=== PATIENT | female | born 1970 | race Caucasian/White ===

== ENCOUNTER 2024-03-31 22:05 | Emergency (ER) | payer OTHER, SELFPAY ==
[2024-03-31 22:07] VITALS: BP 137/89
--- NOTE | 2024-04-01 00:10 | ED.GENMED ---
History of Present Illness
General
Chief Complaint: Head Injury
Source: patient
Exam Limitations: none
Time Seen by Provider: 03/31/24 23:42
Travel History
Have you had any contact with someone who has COVID-19?: No
Do you have any symptoms of coronavirus? Fever > 100 degrees, chills, cough, shortness of breath, sore throat, loss of taste or smell, muscle aches, or headache?: No
History of Present Illness
History of Present Illness:
53-year-old female presents complaining of nasal pain after tripping and falling forward hitting her nose on a wheelchair ramp. No loss of conscious. She was starting to swallow blood and vomited shortly afterwards. She notes a slight headache.
She denies vision change or neck pain. She notes swelling and pain to the nose. No other complaints at this time.
Past History
Past History
ED Past Medical History: None; Negative HTN, Hypercholesterolemia or IDDM
ED Past Surgical History:
Social History
Tobacco: Non-smoker
Alcohol: None
Drug: None
Personal:
Living: with family
Employment: Employed
Family History
Family History: Hypertension
Phy Exam
Physical Exam
Physical Exam:
General: Well-appearing female no acute respiratory distress
HEENT: Normocephalic pupils equal round reactive to light and the nose is swollen with an abrasion over the bridge of the nose. No septal hematoma. Facial bones otherwise nontender extraocular motions are intact
Neurologic: Alert and oriented no facial asymmetry good strength to the lower and upper extremities
Musculoskeletal exam: The spine is nontender
Course
Orders/Labs/Results
Orders:
Orders
03/31/24 22:11
CR Facial Bones Comp Min 3 Vw* Urgent
Comment:
Reason For Exam: injury
Vital Signs
Initial and Last Documented VS:
Initial Vital Signs
Temp Pulse Resp BP Pulse Ox
98.3 F 80 20 137/89 99
03/31/24 22:07 03/31/24 22:07 03/31/24 22:07 03/31/24 22:07 03/31/24 22:07
Last Documented Vital Signs
Temp Pulse Resp BP Pulse Ox
98.3 F 80 20 137/89 99
03/31/24 22:07 03/31/24 22:07 03/31/24 22:07 03/31/24 22:07 03/31/24 22:07
MDM/Problems Addressed
Differential Diagnosis Includes:
Fall with nasal pain. Consider nasal contusion versus fracture or other facial bone fracture.
X-rays of the facial bones were ordered through triage which are negative for acute finding. I personally visualized the x-rays. Clinically I am suspicious for nasal fracture however this is not showing up on the x-rays. Nonetheless we will treat
as such. Recommended ice ibuprofen and ENT follow-up
*Critical Care Note
Total Time (30-74mins, 75-104mins- exclusive of procedures): Not Applicable
ED Attending Note
-
Portions of this chart may have been created with voice recognition software.� Occasional wrong word or��sound alike� substitutions may have occurred due to the inherent limitations of voice recognition software.
Discharge Plan
Departure
Patient Disposition: Home (Routine Discharge)
Date of Disposition: 04/01/24
Time of Disposition: 00:13
Patient with high blood pressure during this ER visit?: No
Discharge Problem:
Injury of nose
Instructions: Nose fracture
Prescriptions:
No Action
No Meds [No Current Medications]
0
Referrals:
Nallely Otto PA-C [Family Provider] -
Willy Liang MD [Active] -
Activity Restrictions/Additional Instructions:
Ice for swelling. Use ibuprofen or Tylenol for pain. Return here for worsening symptoms otherwise follow-up with ENT for further evaluation
Interventions
Interventions:
*Risk Screen - Suicide Last Done: 03/31/24 22:07
*General Assessment Last Done: 03/31/24 22:07
*Neglect/Abuse Screening Last Done: 03/31/24 22:07
*ED COVID-19 Vaccine History Last Done: 03/31/24 22:45
Discharge Date and Time
Print Language: LAO
[2024-04-01 00:22] VITALS: BP 125/69
== END 2024-04-01 00:24 | disposition home or self-care (01) ==
LOC: EMR 22:05
PROVIDERS: EMERGENCY PHYSICIAN Emergency Medicine; FAMILY PHYSICIAN Physician Assistant Medical
DX: S00.31XA Abrasion of nose, initial encounter (principal); R11.10 Vomiting, unspecified; W10.2XXA Fall (on)(from) incline, initial encounter
CPT/HCPCS: 99283; 70150

== ENCOUNTER → 2024-10-12 13:00 | Outpatient (REF) | payer OTHER, SELFPAY | LOC: HWWDC 13:00 | PROVIDERS: ATTENDING PHYSICIAN Physician Assistant Medical | DX: Z12.31 Encounter for screening mammogram for malignant neoplasm of breast (principal) | CPT/HCPCS: 77063; 77067 ==